=== PATIENT | male | born 1940 | race Caucasian/White ===

== ENCOUNTER 2019-06-01 07:25 | Outpatient (RCR) | payer MEDICARE, MEDICAID, SELFPAY | END 2019-06-08 00:01 | LOC: LAB 07:25 | DX: N39.0 Urinary tract infection, site not specified (principal); R60.9 Edema, unspecified; I50.9 Heart failure, unspecified; E78.00 Pure hypercholesterolemia, unspecified; E66.9 Obesity, unspecified | CPT/HCPCS: 36415; 80053; 83880; 85025 ==